=== PATIENT | male | born 1965 | race Caucasian/White ===

== ENCOUNTER 2019-09-29 10:38 | Day surgery (SDC) | payer OTHER, BC ==
[~2019-09-29] VITALS: Ht 182.9 cm; Wt 100.8 kg
[~2019-09-29 10:38] MED LIST: Androgel5 GM; DIAZ5 PO; HYDR1TAB94 PO; METO50ER PO; METPRE4DP PO; Multiple Vitam1 EAC1 PO; OMEP10ER; OXYACE7.5T PO; Percocet 5-3251 EACH PO; Prilosec Otc20 MG; TIZA4 PO; Voltaren100 GM; ZOLP10 PO; Zanaflex4 M1 PO
--- NOTE | 2019-09-29 11:51 | NUR ---
09/29/19 1151 Stella Cavanaugh DRAWN AND DELIVERED TO OR.
== END 2019-09-29 15:35 | disposition home or self-care (01) ==
LOC: ORSCSDS 10:38
PROVIDERS: Orthopaedic Surgery
PROC: 0LS14ZZ Reposition Right Shoulder Tendon, Percutaneous Endoscopic Approach (ICD-10-PCS; principal; 2019-09-29 12:15)
PROC: 0RNJ4ZZ Release Right Shoulder Joint, Percutaneous Endoscopic Approach (ICD-10-PCS; principal; 2019-09-29 12:15)
PROC: 0LQ14ZZ Repair Right Shoulder Tendon, Percutaneous Endoscopic Approach (ICD-10-PCS; principal; 2019-09-29 12:15)
PROC: 0LU14JZ Supplement Right Shoulder Tendon with Synthetic Substitute, Percutaneous Endoscopic Approach (ICD-10-PCS; principal; 2019-09-29 12:15)
DX: S46.011A Strain of muscle(s) and tendon(s) of the rotator cuff of right shoulder, initial encounter (principal); M75.21 Bicipital tendinitis, right shoulder; M75.51 Bursitis of right shoulder; I10 Essential (primary) hypertension; Z79.899 Other long term (current) drug therapy
CPT/HCPCS: C1713; J0171; J0690; J1100; J2250; J2370; J2405; J2704; J3010